=== PATIENT | female | born 2000 | race African-American/Black ===

== ENCOUNTER 2023-03-16 08:43 | Emergency (ER) | payer OTHER ==
[~2023-03-16] VITALS: Ht 162.6 cm; Wt 90.0 kg
[2023-03-16 08:51] VITALS: TEMP 98.3; O2SAT 100
[2023-03-16 09:15] VITALS: BP 106/69; PULSE 91; RESP 22
[2023-03-16] MEDS ORDERED: IBUPROFEN 600MG TABLET PO ONE (09:15)
[2023-03-16] MEDS ORDERED: IBUP-2029 MT (09:47)
== END 2023-03-16 10:35 | disposition home or self-care (01) ==
LOC: ER 08:43
DX: N64.4 Mastodynia (principal); Z98.890 Other specified postprocedural states
CPT/HCPCS: 71045; 99283

== ENCOUNTER 2024-06-16 11:03 | Emergency (ER) | payer OTHER ==
[~2024-06-16] VITALS: Ht 162.6 cm; Wt 86.0 kg
[~2024-06-16 11:03] MED LIST: IBUP-2029 MT
[2024-06-16 12:01] VITALS: O2SAT 99
[2024-06-16 14:36] LABS: CLARITY URINE CLEAR (CLEAR); COLOR URINE YELLOW (YELLOW); GLUCOSE URINE NEGATIVE (NEGATIVE); KETONES URINE 1+ (NEGATIVE); LEUKOCYTE ESTERASE URINE NEGATIVE (NEGATIVE); NITRITE URINE NEGATIVE (NEGATIVE); OCCULT BLOOD URINE 3+ (NEGATIVE); PROTEIN URINE NEGATIVE (NEGATIVE); SPECIFIC GRAVITY URINE 1.027 (1.005-1.030)
[2024-06-16 14:49] LABS: BACTERIA URINE 1+; SQUAMOUS EPITHELIAL CELL URINE 2+ /lpf (RARE/1+); YEAST URINE NONE SEEN
[2024-06-16] MEDS ORDERED: NAPR-681 MT (15:59)
[2024-06-16] MEDS ORDERED: LIDO-116 TOP (15:59)
[2024-06-16] MEDS: KETOROLAC 30MG/ML VIAL IM ONE (16:04)
[2024-06-16 16:09] VITALS: BP 118/70; PULSE 67; RESP 16; TEMP 36.83628; O2SAT 99
== END 2024-06-16 16:09 | disposition home or self-care (01) ==
LOC: ER 11:13
DX: M54.50 Low back pain, unspecified (principal); Z98.890 Other specified postprocedural states
CPT/HCPCS: 99284; 81003; 72070; 96372; J1885